=== PATIENT | male | born 1965 | race Caucasian/White ===

== ENCOUNTER → 2021-02-11 | Outpatient (CLI) | payer BC | LOC: HEART 5 14:33 | DX: R94.31 Abnormal electrocardiogram [ECG] [EKG] (principal); R00.2 Palpitations | CPT/HCPCS: 93306 ==

== ENCOUNTER → 2021-12-10 | Outpatient (CLI) | payer BC | LOC: KOH-I 12-03 09:45 | DX: M50.31 Other cervical disc degeneration, high cervical region (principal); G89.29 Other chronic pain | CPT/HCPCS: 72141 ==